=== PATIENT | female | born 1955 | race Caucasian/White ===

== ENCOUNTER → 2019-06-16 10:16 | Outpatient (CLI) | payer OTHER, SELFPAY ==
[2019-06-16 12:50] LABS: ALB/GLOB Ratio 0.8 RATIO (0.9-2.4); AST(SGOT) 11 U/L (15-37); Alanine Aminotransfer ALT/SGPT 25 U/L (13-56); Albumin, Serum 3.3 g/dL (3.2-5.0); Alkaline Phosphatase 106 U/L (45-117); Anion Gap 6 (5-15); BUN 18 mg/dL (7-18); BUN/Creat Ratio 25.5 RATIO (10-20); Calcium,Total 8.9 mg/dL (8.5-10.1); Chloride 107 mmol/L (98-107); Cholesterol 219 mg/dL (200); Creatinine, Serum 0.71 mg/dL (0.55-1.02); EST Glomerular Filtration Rate 89 mL/min (>60); Est Glom Filt Rate - Afr Amer 107 mL/min (>60); Globulin 4.1 g/dL (2.2-4.2); Glucose 101 mg/dL (74-106); High Density Lipoprotein 50 mg/dL; Potassium 4.1 mmol/L (3.5-5.1); Protein, Total 7.4 g/dL (6.4-8.2); Sodium Level 136 mmol/L (136-145); Triglycerides 96 mg/dL; Very Low Density Lipoprotein 19 mg/dL (5-40)
[2019-06-16 12:54] LABS: Hemoglobin A1c 6.4 % (4.2-6.3)
== END ==
PROVIDERS: PCP Family Medicine; Referring Provider Family Medicine; Visit Provider Family Medicine
DX: E78.5 Hyperlipidemia, unspecified (principal)
CPT/HCPCS: 36415; 80053; 80061; 83036

== ENCOUNTER 2021-04-29 07:40 | Day surgery (SDC) | payer MEDICARE, SELFPAY ==
[2021-04-29] VITALS (7 sets, daily range): BP systolic 106–134; BP diastolic 52–98; PULSE 77–91; RESP 16–20; TEMP 35.7–36.6; O2SAT 92–98; BMI 41.2
--- NOTE | 2021-04-29 08:17 | H&P.OPEN ---
HPI - General HPI Narrative JADE SAWYER, is a 65 F who presents for screening colonoscopy. Her last colonoscopy was 6 years ago and they did find adenomatous polyps. Patient has no abdominal pain or blood in her stool and denies any family history of colon cancer. [facility] Medical History (Updated 04/29/21 @ 08:[address] Segundo Corbin MD) Arthritis Asthma Back pain Basal cell carcinoma Bronchitis High cholesterol History of irregular heartbeat Hyperlipidemia Non-smoker Osteoarthritis Syncope Wears glasses Home Medications albuterol sulfate 90 mcg/actuation aerosol inhaler 2 puff INHALATION Q6H PRN 04/22/21 [History Last Taken Unknown] [id number] [Centrum Silver Women] 1 tab PO DAILY 04/26/21 [History Last Taken Unknown] Allergy/AdvReac Type Severity Reaction Status Date / Time adhesive AdvReac Rash Verified 04/29/21 08:03 iodine AdvReac Hives Verified 04/29/21 08:03 Penicillins AdvReac Hives Verified 04/29/21 08:03 Sulfa (Sulfonamide AdvReac Rash Verified 04/29/21 08:03 Antibiotics) Family History (Updated 04/22/21 @ 08:41 by Shawna Alfaro) Mother CVA (cerebral vascular accident) Epilepsy Brother CVA (cerebral vascular accident) Sister Kidney disease Brother CVA (cerebral vascular accident) Surgical History (Updated 04/22/21 @ 08:34 by Shawna Alfaro) H/O: section H/O: hysterectomy Social History (Updated 04/22/21 @ 08:39 by Shawna Alfaro) housing: apartment pets and animals: Yes (dog) pets and animals: dog(s) Smoking Status: Never smoker alcohol intake: never Past Medical/Surgical History Planned Operation Planned Operative Procedure/s: COLONOSCOPY Previous Hospitalizations/Surgeries HX Hospitalizations: No Any Problems With Anesthesia: No You/Your Family Experience Fever (Hyperthermia) With Anes: No Cholinesterase deficiency: No Cardiovascular Hx Hypertension: No Respiratory Hx Sleep Apnea: No Hx Respiratory Tract Infection/Cold (presently): Yes (2 WEEKS AGO COLD RESOLVED, STILL HAVE A COUGH) Do You Snore Loudly (louder than talking or can be heard): Yes Do You Often Feel Tired/ Fatigued/ Sleepy Dring Daytime?: No Has Anyone Observed You Stop Breathing During Sleep?: No Result (for STOP score): Negative Smoking Status: Never smoker Neurological Does patient have nerve stimulator: No Miscellaneous Recent Exposure to Contagious Disease: No Allergies adhesive Adverse Reaction (Verified 04/29/21 08:03) Rash tapes, some bandaids iodine Adverse Reaction (Verified 04/29/21 08:03) Hives Penicillins Adverse Reaction (Verified 04/29/21 08:03) Hives Sulfa (Sulfonamide Antibiotics) Adverse Reaction (Verified 04/29/21 08:03) Rash Discharge Is Pt Admitted From a [facility], or a Senior Care: No After D/C, Where Do you Plan to Go: Return Home Vital Signs Vital Signs Vital Signs: 04/29/21 08:05 Temperature 97.9 F Temperature Source Temporal Pulse Rate 91 Respiratory Rate 20 H Respiratory Pattern Normal Blood Pressure 134/98 H Blood Pressure Mean 110 Blood Pressure Source Monitor Blood Pressure Position Semi-Fowlers Blood Pressure Location Left Arm Pulse Ox 96 Oxygen Delivery Method Room Air Weight Weight: 255 lb 4.725 oz Body Mass Index (BMI) 41.2 Physical Exam Const alert and oriented x3 Resp normal respiratory effort and normal air movement Cardio regular rate and regular rhythm GI soft to palpation, non-tender and non-distended Assessment & Plan Assessment/Plan (1) History of colon polyps: PLAN: Patient is here for surveillance after having colon polyps 6 years ago and colonoscopy. I explained endoscopy in detail to the patient. I explained the risks including but not limited to stroke or heart attack with anesthesia, perforation of the GI tract, bleeding, infection. I explained that any of these could necessitate further emergency surgery. The patient understands and all questions were answered sufficiently. The patient wishes to proceed with procedure. Segundo Corbin MD Pager: [facility] [address] [place] [address], [address] [place] [address] Office: Surgery Risks - Colonoscopy Risks Include but are not Limited To: Risks include but are not limited to: Bleeding, perforation requiring further surgery, inability to complete colonoscopy requiring barium enema.
[2021-04-29] MEDS: Lactated Ringers 1,000 ML 15 ML IV (08:18)
--- NOTE | 2021-04-29 09:12 | OP.CCLET_ITS ---
04/29/2021 Esteban Morgan Re : Colonoscopy procedure for Erin Hudson Dear Eddie This procedure was performed on Thursday, April 29, 2021. My impressions and recommendations are as follows: Impressions : - The entire examined colon is normal on direct and retroflexion views. - No specimens collected. Recommendations : - Discharge patient to home. - Resume previous diet. - Continue present medications. - Repeat colonoscopy in 10 years for screening purposes. My findings are described in the full procedure note, which is enclosed. If I can be of further assistance, please feel free to contact me at Doctor phone number(s): , Work: . Sincerely, Segundo Corbin MD 04/29/2021 9:11:36 AM This report has been signed electronically.
--- NOTE | 2021-04-29 09:12 | OP.COLON_ITS ---
Patient Name: Erin Hudson Procedure Date: 04/29/2021 8:41 AM Date of : 1955 Age: 65 Procedure: Colonoscopy Indications: High risk colon cancer surveillance: Personal history of colonic polyps Providers: Segundo Corbin MD Medicines: Monitored Anesthesia Care Patient Profile: This is a 65 year old female. Refer to note in patient chart for documentation of history and physical. Last Colonoscopy: several years ago. Complications: No immediate complications. Procedure: Pre-Anesthesia Assessment: - Prior to the procedure, a History and Physical was performed, and patient medications and allergies were reviewed. The patient's tolerance of previous anesthesia was also reviewed. The risks and benefits of the procedure and the sedation options and risks were discussed with the patient. All questions were answered, and informed consent was obtained. Prior Anticoagulants: The patient has taken no previous anticoagulant or antiplatelet agents. ASA Grade Assessment: II - A patient with mild systemic disease. After reviewing the risks and benefits, the patient was deemed in satisfactory condition to undergo the procedure. After I obtained informed consent, the scope was passed under direct vision. Throughout the procedure, the patient's blood pressure, pulse, and oxygen saturations were monitored continuously. The pediatric colonoscope was introduced through the anus and advanced to the cecum, identified by appendiceal orifice and ileocecal valve. The colonoscopy was performed without difficulty. The patient tolerated the procedure well. The quality of the bowel preparation was good. Scope In: 8:51:04 AM Scope Withdrawal Time 0 hours 6 minutes 3 seconds Scope Out: 9:06:53 AM Total Procedure Duration Time 0 hours 15 minutes 49 seconds Findings: The entire examined colon appeared normal on direct and retroflexion views. Impression: - The entire examined colon is normal on direct and retroflexion views. - No specimens collected. Recommendation: - Discharge patient to home. - Resume previous diet. - Continue present medications. - Repeat colonoscopy in 10 years for screening purposes. Procedure Code(s): --- Professional --- 44415, Colonoscopy, flexible; diagnostic, including collection of specimen(s) by brushing or washing, when performed (separate procedure) Diagnosis Code(s): --- Professional --- Z86.010, Personal history of colonic polyps CPT copyright 2017 [employer]. All rights reserved. The codes documented in this report are preliminary and upon door repairer bus review may be revised to meet current compliance requirements. Segundo Corbin MD 04/29/2021 9:11:36 AM This report has been signed electronically. Number of Addenda: 0 Note Initiated On: 04/29/2021 8:41 AM
== END 2021-04-29 09:52 | disposition home or self-care (01) ==
LOC: EN 07:43 → AC 07:44
PROVIDERS: PCP Family Medicine; Referring Provider Family Medicine; Visit Provider Surgery
PROC: 0DJD8ZZ Inspection of Lower Intestinal Tract, Via Natural or Artificial Opening Endoscopic (ICD-10-PCS; CPT 45378; principal; 2021-04-29 08:40)
DX: Z12.11 Encounter for screening for malignant neoplasm of colon (principal); Z86.010 Personal history of colon polyps; J45.909 Unspecified asthma, uncomplicated
CPT/HCPCS: G0105; J7120; J2405

== ENCOUNTER → 2021-05-10 13:00 | Outpatient (CLI) | payer MEDICARE, SELFPAY | PROVIDERS: PCP Family Medicine; Referring Provider Nurse Practitioner Acute Care; Visit Provider Nurse Practitioner Acute Care | DX: G47.33 Obstructive sleep apnea (adult) (pediatric) (principal) | CPT/HCPCS: 95806 ==

== ENCOUNTER 2021-06-17 21:23 | Outpatient (CLI) | payer MEDICARE, SELFPAY | END 2021-06-17 23:59 | disposition short-term general hospital (02) | PROVIDERS: PCP Family Medicine; Referring Provider Nurse Practitioner Acute Care; Visit Provider Nurse Practitioner Acute Care | DX: G47.33 Obstructive sleep apnea (adult) (pediatric) (principal) | CPT/HCPCS: 95811 ==

== ENCOUNTER 2021-07-12 13:00 | Outpatient (CLI) | payer MEDICARE, SELFPAY | END 2021-07-12 23:59 | disposition home or self-care (01) | LOC: SL 13:44 | PROVIDERS: PCP Family Medicine; Visit Provider Nurse Practitioner Acute Care | DX: Z46.89 Encounter for fitting and adjustment of other specified devices (principal) ==

== ENCOUNTER → 2022-09-25 | Outpatient (CLI) | payer MEDICARE, SELFPAY ==
--- NOTE | 2022-09-25 12:26 | BI_ITS ---
MAMMOGRAPHY - BILATERAL SCREENING REASON FOR EXAM: Female, 67 years old. Routine annual screening examination. PERTINENT HISTORY: Non-contributory. TECHNIQUE: Digital bilateral breast katie (3D mammographic acquisition) in the CC and MLO projections. 2-D mediolateral oblique (MLO) and craniocaudad (CC) views of both breasts were obtained. CAD: Full Field Digital Mammography with Computer Added Detection was performed. COMPARISON: No comparison mammograms available at this time. If any prior films become available, an addendum to this report can be generated. FINDINGS: PERTINENT HISTORY: Non-contributory. TECHNIQUE: Digital bilateral breast katie (3D mammographic acquisition) in the CC and MLO projections. 2-D mediolateral oblique (MLO) and craniocaudad (CC) views of both breasts were obtained. CAD: Full Field Digital Mammography with Computer Added Detection was performed. COMPARISON: No comparison mammograms available at this time. If any prior films become available, an addendum to this report can be generated. FINDINGS: Breast Composition: The breasts are heterogeneously dense, which may obscure small masses. There is a 7.7 mm x 11.1 mm well-defined nodule in the retroareolar region of the left breast. Correlation with ultrasound is recommended for further evaluation. No other significant abnormalities are identified. BI/SCRN MAMM (CAD)W/KATIE BILAT IMPRESSION: 7.7 mm x 11.1 mm well-defined nodule in the retroareolar region of the left breast. Correlation with ultrasound is recommended. ASSESSMENT CATEGORY: BIRADS Category 0: Incomplete. Need additional imaging evaluation. A letter regarding these results will be sent to the patient by the facility within 30 days. Approximately 10% of breast cancers are not detected by mammography. A normal mammogram should not delay biopsy of a clinically suspicious abnormality. [id number] Electronically Signed: Vinicius Cantor MD at 13:35 EDT ,
== END | disposition home or self-care (01) ==
LOC: OPBI 12:23
PROVIDERS: PCP Family Medicine; Referring Provider Family Medicine; Visit Provider Family Medicine
DX: Z12.31 Encounter for screening mammogram for malignant neoplasm of breast (principal)
CPT/HCPCS: 77063; 77067

== ENCOUNTER → 2022-09-26 | Outpatient (CLI) | payer MEDICARE, SELFPAY ==
--- NOTE | 2022-09-26 09:25 | US_ITS ---
STUDY: ULTRASOUND BREAST - LEFT REASON FOR EXAM: Female, 67 years old. Abnormal screening mammogram. TECHNIQUE: Axial and longitudinal images of the LEFT breast were performed with a high resolution ultrasound transducer. # OF IMAGES: 30 COMPARISON: Comparison is made with prior mammogram dated September 26, 2019 FINDINGS: LEFT Breast: Multiple small cysts are seen in the retroareolar region of the left breast. The largest cyst measures 1.1 cm x 1.1 cm x 1 cm. This corresponds to the mammographic finding. US/Breast Limited Unilateral IMPRESSION: Multiple small cysts are seen in the retroareolar region of the left breast. Routine mammographic follow-up recommended. ASSESSMENT CATEGORY: BIRADS Category 2: Benign. A letter regarding these results will be sent to the patient by the facility within 30 days. Electronically Signed: Vinicius Cantor MD at 15:06 EDT ,
== END | disposition home or self-care (01) ==
PROVIDERS: PCP Family Medicine; Referring Provider Family Medicine; Visit Provider Family Medicine
DX: R92.8 Other abnormal and inconclusive findings on diagnostic imaging of breast (principal)
CPT/HCPCS: 76642

== ENCOUNTER → 2022-10-09 | Outpatient (CLI) | payer MEDICARE, SELFPAY ==
[2022-10-09 15:47] LABS: Absolute Lymphocyte Count 1.79 X10^3/uL (0.83-4.51); Absolute Neutrophil Count 2.9 X10^3/uL (2.0-7.7); Basophil# 0.04 X10^3/uL; Basophil% 0.7 % (0-1); Eosinophil# 0.05 X10^3/uL; Eosinophils% 0.9 % (0-5); Hematocrit 45.8 % (37-47); Hemoglobin 14.2 g/dL (12.0-15.0); Lymphocyte # 1.79 X10^3/ul (0.83-4.51); Lymphocyte % 32.8 % (19-41); Mean Corpuscular Hgb 30.3 pg (27.0-32.0); Mean Corpuscular Volume 97.7 fL (81-99); Mean Platelet Vol. 10.5 fl (6.2-12.0); NRBC Flagged by Analyzer 0 % (0-5); Neutrophil # 2.93 X10^3/uL (2.7-7.7); Neutrophil % 53.9 % (47-70); Platelet Count 265 K/mm3 (150-450); RBC Distribution Width SD 50.5 fl (35.1-43.9); Red Blood Count 4.69 M/mm3 (4.2-5.4); White Blood Count 5.5 K/mm3 (4.4-11.0)
[2022-10-09 16:00] LABS: Vitamin B12 341 pg/mL (211-911); Vitamin D,25 Hydroxy 33.7 ng/mL
[2022-10-09 16:12] LABS: ALB/GLOB Ratio 0.8 RATIO (0.9-2.4); AST(SGOT) 20 U/L (15-37); Alanine Aminotransfer ALT/SGPT 23 U/L (13-56); Albumin, Serum 3.2 g/dL (3.2-5.0); Alkaline Phosphatase 105 U/L (45-117); Anion Gap 8 (5-15); BUN 21 mg/dL (7-18); BUN/Creat Ratio 27.5 RATIO (10-20); Calcium,Total 8.6 mg/dL (8.5-10.1); Chloride 107 mmol/L (98-107); Cholesterol 195 mg/dL (200); Creatinine, Serum 0.76 mg/dL (0.55-1.02); EST Glomerular Filtration Rate 80 mL/min (>60); Est Glom Filt Rate - Afr Amer 97 mL/min (>60); Globulin 4.2 g/dL (2.2-4.2); Glucose 100 mg/dL (74-106); High Density Lipoprotein 48 mg/dL; Potassium 4.3 mmol/L (3.5-5.1); Protein, Total 7.4 g/dL (6.4-8.2); Sodium Level 139 mmol/L (136-145); T4 Free Direct 1.04 ng/dL (0.76-1.46); Thyroid Stim Hormone (TSH) 2.17 uIU/mL (0.358-3.74); Triglycerides 86 mg/dL; Very Low Density Lipoprotein 17 mg/dL (5-40)
== END | disposition home or self-care (01) ==
LOC: BFHLAB 11:42
PROVIDERS: PCP Nurse Practitioner Family; Referring Provider Nurse Practitioner Family; Visit Provider Nurse Practitioner Family
DX: R73.01 Impaired fasting glucose (principal); E78.5 Hyperlipidemia, unspecified; R53.83 Other fatigue; E55.9 Vitamin D deficiency, unspecified
CPT/HCPCS: 36415; 80053; 80061; 82306; 82607; 84439; 84443; 85025

== ENCOUNTER → 2024-01-01 | Outpatient (CLI) | payer MEDICARE, SELFPAY | END | disposition home or self-care (01) | LOC: SL 19:59 | PROVIDERS: PCP Nurse Practitioner Family; Referring Provider Nurse Practitioner Acute Care; Visit Provider Nurse Practitioner Acute Care | DX: G47.33 Obstructive sleep apnea (adult) (pediatric) (principal) | CPT/HCPCS: 95810 ==

== ENCOUNTER → 2024-04-14 | Outpatient (CLI) | payer MEDICARE, SELFPAY ==
[2024-04-14 15:30] LABS: Absolute Lymphocyte Count 1.82 X10^3/uL (0.83-4.51); Absolute Neutrophil Count 3.2 X10^3/uL (2.0-7.7); Basophil# 0.05 X10^3/uL; Basophil% 0.9 % (0-1); Eosinophil# 0.04 X10^3/uL; Eosinophils% 0.7 % (0-5); Hematocrit 42.6 % (37-47); Hemoglobin 14.1 g/dL (12.0-15.0); Lymphocyte # 1.82 X10^3/ul (0.83-4.51); Lymphocyte % 32.5 % (19-41); Mean Corp Hgb Conc 33.1 g/dL (32-36); Mean Corpuscular Hgb 30.4 pg (27.0-32.0); Mean Corpuscular Volume 91.8 fL (81-99); Mean Platelet Vol. 10.2 fl (6.2-12.0); Monocyte# 0.51 X10^3/uL; Monocyte% 9.1 % (0-10); NRBC Flagged by Analyzer 0 % (0-5); Neutrophil # 3.16 X10^3/uL (2.7-7.7); Neutrophil % 56.4 % (47-70); Platelet Count 293 K/mm3 (150-450); RBC Distribution Width CV 13.4 % (11.6-14.6); RBC Distribution Width SD 45.3 fl (35.1-43.9); Red Blood Count 4.64 M/mm3 (4.2-5.4); White Blood Count 5.6 K/mm3 (4.4-11.0)
[2024-04-14 15:48] LABS: Vitamin D,25 Hydroxy 28.6 ng/mL
[2024-04-14 15:58] LABS: ALB/GLOB Ratio 0.9 RATIO (0.9-2.4); AST(SGOT) 12 U/L (15-37); Alanine Aminotransfer ALT/SGPT 25 U/L (13-56); Albumin, Serum 3.4 g/dL (3.2-5.0); Alkaline Phosphatase 112 U/L (45-117); Anion Gap 5 (5-15); BUN 13 mg/dL (7-18); BUN/Creat Ratio 18.9 RATIO (10-20); Calcium,Total 8.9 mg/dL (8.5-10.1); Chloride 104 mmol/L (98-107); Cholesterol 200 mg/dL (200); Creatinine, Serum 0.69 mg/dL (0.55-1.02); EST Glomerular Filtration Rate 90 mL/min (>60); Est Glom Filt Rate - Afr Amer 109 mL/min (>60); Globulin 3.8 g/dL (2.2-4.2); Glucose 107 mg/dL (74-106); High Density Lipoprotein 57 mg/dL; Potassium 4.5 mmol/L (3.5-5.1); Protein, Total 7.2 g/dL (6.4-8.2); Sodium Level 138 mmol/L (136-145); T4 Free Direct 1.06 ng/dL (0.76-1.46); Triglycerides 86 mg/dL; Very Low Density Lipoprotein 17 mg/dL (5-40)
== END | disposition home or self-care (01) ==
LOC: BFHLAB 13:12
PROVIDERS: PCP Nurse Practitioner Family; Referring Provider Nurse Practitioner Family; Visit Provider Nurse Practitioner Family
DX: I10 Essential (primary) hypertension (principal); E78.5 Hyperlipidemia, unspecified; E55.9 Vitamin D deficiency, unspecified; Z83.49 Family history of other endocrine, nutritional and metabolic diseases
CPT/HCPCS: 36415; 80053; 80061; 82306; 84439; 84443; 85025

== ENCOUNTER → 2024-05-06 | Outpatient (CLI) | payer MEDICARE, SELFPAY ==
--- NOTE | 2024-05-06 13:19 | BI_ITS ---
MAMMOGRAPHY - BILATERAL SCREENING REASON FOR EXAM: Female, 68 years old. Routine annual screening examination. PERTINENT HISTORY: Non-contributory. TECHNIQUE: Digital bilateral breast katie (3D mammographic acquisition) in the CC and MLO projections. 2-D mediolateral oblique (MLO) and craniocaudad (CC) views of both breasts were obtained. CAD: Full Field Digital Mammography with Computer Added Detection was performed. COMPARISON: Comparison is made with prior study dated September 25, 2022. FINDINGS: Breast Composition: The breasts are heterogeneously dense, which may obscure small masses. There are no dominant masses or suspicious calcifications. Previous study seen small nodules in the retroareolar region of the left breast have decreased in size. No other significant abnormalities are identified. There has been no significant change since the prior study. BI/SCRN MAMM (CAD)W/KATIE BILAT IMPRESSION: Stable bilateral screening mammogram. Yearly follow-up mammogram recommended. (A) ASSESSMENT CATEGORY: BIRADS Category 2: Benign. A letter regarding these results will be sent to the patient by the facility within 30 days. Approximately 10% of breast cancers are not detected by mammography. A normal mammogram should not delay biopsy of a clinically suspicious abnormality. [id number] Electronically Signed: Vinicius Cantor MD at 14:41 EST ,
--- NOTE | 2024-05-06 13:22 | BD_ITS ---
STUDY: DUAL ENERGY X-RAY ABSORPTIOMETRY / DXA REASON FOR EXAM: Female, 68 years old. M810 TECHNIQUE: Bone Mineral Density (BMD) measurements of lumbar spine and bilateral hips were obtained. COMPARISON: None. FINDINGS: Lumbar Spine (L1-L4): g/cm2 (0.800) / T-score (-2.7) / Z-score (-0.6) Findings are suggestive of osteoporosis with a high fracture risk. Left Femur Total: g/cm2 (0.957) / T-score (0.1) / Z-score (1.6) Left Femoral Neck: g/cm2 (0.872) / T-score (0.2) / Z-score (1.9) Right Femur Total: g/cm2 (0.973) / T-score (0.3) / Z-score (1.7) Right Femoral Neck: g/cm2 (0.967) / T-score (1.1) / Z-score (2.8) BD/Dexa Bone Density Study IMPRESSION: The patient is considered osteoporotic as outlined below according to World Otis Organization (WHO) criteria with a high fracture risk. Reference Information: The T-score is the number of standard deviations above or below the standard which is normal for young adults at their peak bone mineral density. The World Health Organization (WHO) interprets the T-scores as follows: Above -1 Normal bone density Between -1 and -2.5 Osteopenia Equal to / or below -2.5 Osteoporosis As a practical clinical guideline, osteopenia may be graded as follows: Mild -1 through -1.5 Moderate -1.6 through -2.0 Severe -2.1 through -2.4 The Z-score is the number of standard deviations above or below age-matched controls. A Z-score of less than -1.5 would be considered abnormal. References: 1. NIH Osteoporosis and Related Bone Diseases www osteo.org 2. International Society for Clinical Densitometry www iscd.org 3. National Osteoporosis Foundation www nof.org Electronically Signed: Vinicius Cantor MD at 8:47 EST ,
== END | disposition home or self-care (01) ==
LOC: OPBD 13:16
PROVIDERS: PCP Nurse Practitioner Family; Referring Provider Nurse Practitioner Family; Visit Provider Nurse Practitioner Family
DX: Z12.31 Encounter for screening mammogram for malignant neoplasm of breast (principal); M81.0 Age-related osteoporosis without current pathological fracture
CPT/HCPCS: 77063; 77067; 77080

== ENCOUNTER → 2024-11-03 | Outpatient (CLI) | payer MEDICARE, SELFPAY ==
--- NOTE | 2024-11-03 14:04 | RAD_ITS ---
PROCEDURE: THORACIC SPINE 3 VIEWS 11/03/2024 REASON FOR EXAM: DORSALGIA, CERVICALGIA TECHNIQUE: THORACIC SPINE 3 VIEWS COMPARISON: None FINDINGS: The bones are osteoporotic. Normal visualized thoracic vertebrae. Normal disc space heights and vertebral endplates. Normal kyphosis. Normal visualized soft tissue structures. RAD/Thoracic Spine 3 Views IMPRESSION: Osteoporosis, otherwise, unremarkable plain film x-ray examination of the thora cic spine. Reading [facility]
--- NOTE | 2024-11-03 14:04 | RAD_ITS ---
PROCEDURE: CERV SPINE 4 OR 5 VIEWS 11/03/2024 REASON FOR EXAM: DORSALGIA, CERVICALGIA TECHNIQUE: CERV SPINE 4 OR 5 VIEWS COMPARISON: None FINDINGS: The bones are somewhat osteoporotic. Normal craniovertebral junction. Normal anterior atlantoaxial articulation. Normal odontoid process. Normal cervical lordosis. Normal vertebral bodies and posterior osseous elements. There is narrowing of the intervertebral discs of C5-C6 and C6-C7 with anterior hypertrophic changes. Degenerative changes are seen involving the intervertebral facet joints. Normal visualized intervertebral neuroforamina. Normal visualized soft tissue structures. RAD/Cerv Spine 4 or 5 Views IMPRESSION: Osteoporosis. Degenerative disc disease. No acute fracture or dislocation. Reading Location: [facility]
== END | disposition home or self-care (01) ==
LOC: MTRAD 14:02
PROVIDERS: PCP Nurse Practitioner Family; Referring Provider Nurse Practitioner Family; Visit Provider Nurse Practitioner Family
DX: M54.2 Cervicalgia (principal)
CPT/HCPCS: 72050; 72072

== ENCOUNTER 2024-12-11 10:00 | Outpatient (RCR) | payer MEDICARE, SELFPAY ==
--- NOTE | 2024-11-07 15:21 | HP.PTEVAL ---
Patient's Visit Information Visit Information Visit Information: JADE SAWYER is a 69 year old F referred to Physical Therapy by PETEY Laird with a diagnosis of THORACIC SPINE PAIN AND TAWANNA KNEE VALGUS. Date of Evaluation: 11/07/24 Physical Therapist: Conchita Preston, PT, Cert MDT Visit Plan Frequency: 2x /Week Duration: 2-4 Weeks Plan: *OSTEOPOROSIS* POSTURE CORRECTION/STRENGTHENING, INSTRUCTION IN APPROPRIATE BODY MECHANICS AND ACTIVITY MODIFICATIONS. DLS STARTING WITH A NEUTRAL SPINE PROGRESSING ROM TOLERATED. NECK ROM/STRETCHING AND STABILITY EX TRAINING. TAWANNA UE AND LE ROM, STRETCHING AND STRENGTHENING. HEP INSTRUCTION. US TO NECK/UPPER SCHOOL JANITOR AREAS NEEDED. Subjective Subjective: Work/Leisure: RETIRED Present symptoms: PATIENTS PRESENTS TO PT WITH CHEIF C/O UPPER AND MID BACK PAIN. INTERMITTENT NECK PAIN TOO. INTERMITTENT UE GENERAL NUMBNESS AND TINGLING AND PATIENT REPORTS IT CAN BE EITHER ARM. Present since: CHRONIC. 30+ YEARS Getting Better, Getting Worse or Staying the Same: STAYING THE SAME Pain Scale: Worst - 7/10 Least - 0/10 Currently: 0/10 Commenced as a result of: NO APPARENT REASON Symptoms at onset: LOW BACK PAIN Worse: SITTING UPRIGHT, MOVING A LOT OF FURNITURE, EXERCISE SOMETIMES, PROLONGED DRIVING Better: STAND UP AND WALK AROUND, STRETCH A LITTLE, SITTING BACK IN A CHAIR Disturbed sleep: YES - NOT SURE WHY BUT NUMBNESS IN ARMS DOES AND NOT SURE IF IT IS RELATED TO THIS. Previous history/Previous treatment: NONE This episode: PT CONSULT Dizziness: NO Tinnitus: NO Nausea: SELDOM Shortness of Breath: NO Difficulty Swallowing: NO Gait: NORMAL Accidents: NORMAL Unexplained weight loss: NORMAL Imagin11/03/24: Osteoporosis, otherwise, unremarkable plain film x-ray examination of the thoracic spine. 11/03/24: There is narrowing of the intervertebral discs of C5-C6 and C6-C7 with anterior hypertrophic changes. Degenerative changes are seen involving the intervertebral facet joints. Normal visualized intervertebral neuroforamina. IMPRESSION: Osteoporosis. Degenerative disc disease. No acute fracture or dislocation. PMH/Recent major surgery: Osteoporosis Sleep Apnea Arthritis High cholesterol Back pain Syncope Non-smoker History of irregular heartbeat Osteoarthritis Hyperlipidemia Basal cell carcinoma Bronchitis Asthma H/O: hysterectomy H/O: section Objective Objective: Sitting Posture/Standing Posture: FH. RSH'S. NO TORTICOLLIS Active Correction of posture: PATIENT ONLY MINIMALLY ABLE TO CORRECT AND NOT MAINTAIN. INCREASES C/O UPPER BACK PAIN. Other Observations: INDEP GAIT WITHOUT AD INTO PT. INDEP TRANSFERS WITH UE ASSIST. Sensory deficit: TAWANNA UE LIGHT TOUCH SENSATION GROSSLY INTACT AND SYMMETRICAL ROM deficit: ABLE TO RAISE TAWANNA SHLDS APPROX 150 DEG. ER 80 DEG TAWANNA AND ABLE TO REACH L4 TAWANNA. TAWANNA ELBOWS, FOREARMS, WRISTS AND HANDS WFLS. 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 TAWANNA HIPS 4-/5. Reflexes: UNABLE TO ELICIT TAWANNA UE DTR'S Dural Signs: NEGATIVE TAWANNA UE'S Cervical Mvmt Loss: Flex: NIL Pro: NIL Ext: MOD Ret: MOD RSB: MOD LSB: MOD TO MARTITA R Rot: MIN L Rot: MIN PATIENT C/O INCREASED UPPER BACK PAIN WITH CERVICAL ROM TESTING INTO TAWANNA SB, TAWANNA ROT AND RET, NAILA L SB AND L ROT NEAR SHLD BLADES AND CENTRALLY. Postural strength: POOR Core Strength: FAIR Minus Balance/Special Test Scores Oswestry Neck Score: 23 Goals Goal 1:: DECREASE C/O BACK PAIN BY AT LEAST 50% TO EASE ADL'S. Goal Time Frame: 4-6 Weeks Goal 2:: IMPROVE PERSONAL CARE, LIFTING, READING, SLEEP, WORK, DRIVING AND RECREATIONAL FUNCTION WITH AT LEAST 5 POINT IMPROVEMENT IN NECK OSWESTRY SCORE. Goal Time Frame: 4-6 Weeks Goal 3:: INSTRUCT IN PROPHYLAXIS Goal Time Frame: 4-6 Weeks Rehabilitation Potential Physical Therapy Diagnosis: CORE, POSTURAL, NECK AND SHLD WEAKNESS AND STIFFNESS WITH NECK AND UPPER BACK PAIN LIMITING ADL'S. Rehabilitation Potential: Good Anticipated Interventions Patient/Client Instruction: Educate patient on: Condition, Plan of Care and Risk Factors For the Purpose of:: To improve self management Therapeutic Exercise to Include: Strength training, Body mechanics, Postural training, Flexibilty training, Neuromotor development, In an aquatic setting and Dynamic Lumbar Stabilization For the Purpose of:: To decrease pain, To improve nutrient delivery to tissue, To improve muscle performance and motor function, To improve ability to perform ADL's, To increase tolerance to activity/condition/position, To improve ability of physical actions for home/community/work/leisure, To increase flexibility/ROM and To improve self management Ultrasound (thermal/non thermal): Yes For the Purpose of:: To decrease pain and To improve nutrient delivery to tissue Text: Thank you for the opportunity to evaluate your patient. For Medicare and Medicare HMO plans, please review the plan of care and approve it. It will need to be FAXED BACK to us at [phone] for Medicare purposes. For Medicare only, by signing this I certify the plan of care. Please let me know if there are questions or concerns regarding this plan of care. Physician Signature: Date:
--- NOTE | 2024-12-11 10:57 | HP.PTDCSUM_ITS ---
Discharge Summary D/C summary: It has been my pleasure to treat JADE SAWYER referred by Nelia Ceron NP-C, with the diagnosis of THORACIC SPINE PAIN AND TAWANNA KNEE VALGUS for a total of 7 visit(s). Discharge Date: 12/11/24 Please see the following information for a summary of their discharge status. Subjective Subjective: PATIENT REPORTS SHE IS DOING GOOD. STATES SHE HAS BEEN ABLE TO DO THE NEW EX'S WITHOUT ANY INCREASED PAIN OR SYMPTOMS. SPENT ABOUT 30 MIN BENT OV ER HAND TRIMMING AROUND THE PATIO YESTERDAY AND HAD SOME UPPER BACK PAIN TOWARDS THE END. PATIENT HAS NO QUESTIONS OR CONCERNS AT THIS TIME AND ISN'T AWARE OF ANYTHING MISSED OR NOT COVERED DURING THIS EPISODE OF CARE. Pain BETWEEN SHLD BLADES: Pain Intensity (Out of 10): 2 Overall Improvement % Improvement: 60 Objective Objective/Function: THIS PATIENT HAS DONE REALLY WELL WITH PT. SHE IS INDEP WITH A HEP. ALL GOALS HAVE BEEN MET AND PATIENT IS APPROPRIATE FOR AND AGREEABLE TO DISCHARGE. Goals Goal 1:: DECREASE C/O BACK PAIN BY AT LEAST 50% TO EASE ADL'S. Goal Progress: Goal Met Goal 2:: IMPROVE PERSONAL CARE, LIFTING, READING, SLEEP, WORK, DRIVING AND RECREATIONAL FUNCTION WITH AT LEAST 5 POINT IMPROVEMENT IN NECK OSWESTRY SCORE. Goal Progress: Goal Met Goal 3:: INSTRUCT IN PROPHYLAXIS Goal Progress: Goal Met Plan Plan: D/C D/C Information d/c sentence: If there are questions or concerns regarding this patient's physical therapy, please feel free to call me at [phone]. Thank you for the referral of this patient. Sincerely, Conchita Preston, PT, Cert MDT Balance/Gait/Functional tests Balance/Special Test Scores Oswestry Neck Score: 1 Improvement % Improvement: 60
== END 2024-12-11 19:00 | disposition home or self-care (01) ==
LOC: PT 10:00
PROVIDERS: PCP Nurse Practitioner Family; Referring Provider Nurse Practitioner Family; Visit Provider Nurse Practitioner Family
DX: M54.6 Pain in thoracic spine (principal); M21.061 Valgus deformity, not elsewhere classified, right knee; M21.062 Valgus deformity, not elsewhere classified, left knee
CPT/HCPCS: 97162; 97530